=== PATIENT | female | born 1960 ===

== ENCOUNTER → 2019-05-09 | Day surgery (SDC) | payer OTHER ==
[~2019-05-09] MED LIST: IBU600 MG PO; PERCOCET 5-3251 EACH PO; SYNTHROID112 MCG PO
== END | disposition home or self-care (01) ==
LOC: ADM 04-14 08:30 → CIR.AMB 07:09
DX: D27.0 Benign neoplasm of right ovary (principal); D27.1 Benign neoplasm of left ovary